=== PATIENT | female | born 1960 | race Caucasian/White ===

== ENCOUNTER 2019-10-21 11:57 | Emergency (ER) | payer OTHER ==
[2019-10-21 12:40] LABS: #Basophils 0.2 thou/uL (0.0-0.2); #Eosinphils 0.3 thou/uL (0.0-0.7); #Lymphocytes 0.7 thou/uL (1.20-3.40); #Monocytes 0.7 thou/uL (0.11-0.59); #Neutrophils 5.1 thou/uL (1.40-6.50); %Basophils 2.5 % (0.0-1.0); %Lymphocytes 10.1 % (21.0-51.0); %Monocytes 9.5 % (0.0-10.0); %Neutrophils 73.9 % (42.0-75.0); Hemoglobin 9.8 g/dL (12.0-16.0); Mean Corpuscular HGB CONC 30.8 g/dL (32.0-36.0); Mean Corpuscular Hemoglobin 27.6 pg (27.0-31.0); Mean Corpuscular Volume 89.4 fL (78.0-98.0); Mean Platelet Volume 9.1 fL (7.4-10.4); Platelet Count 298 thou/uL (130-400); RBC Distribution Width 13.8 % (11.5-14.5); Red Blood Cell (RBC) Count 3.57 mill/uL (4.20-5.40); White Blood Cell (WBC) Count 6.9 thou/uL (4.8-10.8)
[2019-10-21 12:57] LABS: Anion Gap 17 mmol/L (10-20)
--- NOTE | 2019-10-21 13:02 | RAD ---
XR Chest 1 View Portable History: Dyspnea Comparison: None. Findings: Heart size is enlarged. Moderate pulmonary edema. Moderate to large pleural effusions. No p neumothorax. Impression: Moderate decompensated congestive heart failure.
[2019-10-21 13:05] LABS: BUN (Urea Nitrogen) 53 mg/dL (9.8-20.1); Calc. Creatinine Clearance 0 mL/min (70-130); Carbon Dioxide 20 mmol/L (22-29); Chloride 111 mmol/L (98-107); Potassium 4.2 mmol/L (3.5-5.1); Sodium 144 mmol/L (136-145)
[2019-10-21 13:07] LABS: ALT (SGPT) 16 U/L (8-55); AST (SGOT) 12 U/L (5-34); Albumin 2.6 g/dL (3.5-5.0); Alkaline Phosphatase 19 U/L (40-110); Bilirubin, Total 0.2 mg/dL (0.2-1.2); Calcium 7.8 mg/dL (7.8-10.44); Estimated GFR-MDRD 11; Globulin 2.3 g/dL (2.4-3.5); Glucose 180 mg/dL (70-105); Protein, Total 4.9 g/dL (6.0-8.3)
[2019-10-21] MEDS ORDERED: Furosemide 40 MG/4 ML VIAL ONE ×2 (13:16→13:51)
[2019-10-21 13:23] LABS: Bicarbonate (HCO3v) 22.1 mmol/L (22.0-28.0); CO2 Tension (PvCO2) 43.7 mmHg (40.0-50.0); Calcium, Ionized 1.12 mmol/L (See Comments:); Chloride 115 mmol/L (98-107); Hemoglobin - Calc 9.8 g/dL (12.0-16.0); Potassium 4.2 mmol/L (3.5-5.1); Sodium 145 mmol/L (138-145); T. Carbon Dioxide 23.4 mmol/L (22.0-28.0); vO2 Saturation-calc 98.9 % (60.0-85.0)
[2019-10-21 13:27] LABS: CKMB 9.7 ng/mL (0-6.6)
[2019-10-21] MEDS ORDERED: Naloxone HCl 0.4 mg/ml Vial ONE (13:30)
[2019-10-21] MEDS ORDERED: Nitroglycerin 0.4 MG TAB 1 EACH ONE ×2 (13:31→13:51)
[2019-10-21] MEDS ORDERED: Lorazepam 2 MG/ML VIAL ONE (14:25)
== END 2019-10-21 14:52 | disposition short-term general hospital (02) ==
LOC: MADERS 11:57
DX: I11.0 Hypertensive heart disease with heart failure (principal); I50.9 Heart failure, unspecified; E11.9 Type 2 diabetes mellitus without complications; J45.909 Unspecified asthma, uncomplicated; Z79.899 Other long term (current) drug therapy
CPT/HCPCS: 51702; 71045; 80053; 82330; 82553; 82803; 83605; 83880; 84484; 85025; 85379; 93005; 96374; 96375; J1940; J2060; J2310